=== PATIENT | female | born 2000 | race African-American/Black ===

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

== ENCOUNTER 2021-11-14 20:58 | Emergency (ER) | payer OTHER ==
[~2021-11-14] VITALS: Ht 170.2 cm; Wt 106.4 kg
[2021-11-14 22:17] VITALS: BP 104/64
[2021-11-14] MEDS ORDERED: METHYLPREDNISOLONE SOD SUCC 125 MG/2 ML VIAL IM STA (22:25)
[2021-11-14] MEDS ORDERED: IPRATROPIUM BROMIDE (0.02%) 0.5MG/2.5ML NEB HHN STA (22:25)
[2021-11-14] MEDS ORDERED: ALBUTEROL (0.083%) 2.5MG/3ML NEB HHN STA (22:25)
[2021-11-15] MEDS ORDERED: METHYLPREDNISOLONE SOD SUCC 125 MG/2 ML VIAL IM SCH (04:15)
[2021-11-15] MEDS ORDERED: IPRATROPIUM BROMIDE (0.02%) 0.5MG/2.5ML NEB HHN SCH (04:15)
[2021-11-15] MEDS ORDERED: ALBUTEROL (0.083%) 2.5MG/3ML NEB HHN SCH (04:15)
[2021-11-15] MEDS ORDERED: P50 PO (06:06)
[2021-11-15] MEDS ORDERED: ALBU18HF2 IH (06:06)
== END 2021-11-15 07:38 | disposition home or self-care (01) ==
LOC: ER 20:58
DX: J45.901 Unspecified asthma with (acute) exacerbation (principal)
CPT/HCPCS: 94640; 96372; 99283; J2930; Z7610

== ENCOUNTER 2025-06-06 01:18 | Emergency (ER) | payer OTHER ==
[~2025-06-06] VITALS: Ht 162.6 cm; Wt 73.0 kg
[~2025-06-06 01:18] MED LIST changes: +ALBU18HF2 IH; +P50 PO
[2025-06-06 01:20] VITALS: O2SAT 100
[2025-06-06] MEDS: VISCOUS LIDOCAINE 2% 15 ML UDC MM STA ×2 (02:14→02:42)
[2025-06-06 02:57] VITALS: BP 111/80; PULSE 77; RESP 18; TEMP 36.8; O2SAT 99
== END 2025-06-06 03:00 | disposition home or self-care (01) ==
LOC: ER 01:18
DX: J02.8 Acute pharyngitis due to other specified organisms (principal); J45.909 Unspecified asthma, uncomplicated
CPT/HCPCS: 81025; 99283